=== PATIENT | female | born 1950 | race Caucasian/White ===

== ENCOUNTER 2021-01-29 19:31 | Observation (INO) ==
[2021-01-29 20:21] LABS: Basophils # 0.1 K/mcL (0.0-0.2); Basophils % 1.2 %; Eosinophils # 0.2 K/mcL (0.0-0.6); Eosinophils % 2.1 %; Hematocrit 46.6 % (35.3-44.9); Hemoglobin 15.6 g/dL (11.5-15.4); Immature Granulocytes % 0.4 % (0-4); Lymphocytes # 2.8 K/mcL (0.6-4.6); Lymphocytes % 36.3 %; Mean Corpuscular HGB Conc 33.5 g/dL (31.6-35.5); Mean Corpuscular Hemoglobin 31.8 pg (28.0-33.3); Mean Corpuscular Volume 94.9 fL (83.0-100.0); Mean Platelet Volume 9.1 fL (9.4-12.4); Monocytes # 0.7 K/mcL (0.0-1.3); Monocytes % 8.6 %; Platelet Count 347 K/mcL (140-400); Red Blood Count 4.91 M/mcL (3.82-4.97); Red Cell Distribution Width 13.6 % (11.5-14.5); Segmented Neutrophils % 51.4 %; White Blood Count 7.7 K/mcL (4.3-11.1)
[2021-01-29] MEDS ORDERED: Aspirin 81 MG TAB.CHEW PO ONE (20:38)
[2021-01-29 20:43] LABS: BUN/Creatinine Ratio 26 (6-26); Blood Urea Nitrogen 18 mg/dL (8-23); Carbon Dioxide 27 mEq/L (23-29); Chloride 101 mEq/L (98-107); Glucose 92 mg/dL (70-105); Osmolality,Calculated 290 (280-300); Potassium 3.6 mEq/L (3.5-5.1); Sodium 139 mEq/L (136-145); Troponin I < 0.03 ng/mL (< 0.04); eGFR For African Americans > 60 (> 60); eGFR For Non-African Americans > 60 (> 60)
[2021-01-29] MEDS ORDERED: *HR* Promethazine 25 MG/ML VIAL IM PRN (21:56)
[2021-01-29] MEDS ORDERED: Melatonin 3 MG TABLET PO PRN (21:56)
[2021-01-29] MEDS ORDERED: Naloxone 0.4 MG/ML INJ IVP PRN (21:56)
[2021-01-29] MEDS ORDERED: Ondansetron 4 MG/2 ML VIAL IVP PRN (21:56)
[2021-01-30] MEDS ORDERED: *HR* Heparin 5,000 UNIT/ML VIAL SQ SCH (02:00)
[2021-01-30 02:58] LABS: Basophils # 0.1 K/mcL (0.0-0.2); Basophils % 1.1 %; Eosinophils # 0.2 K/mcL (0.0-0.6); Eosinophils % 2.4 %; Hematocrit 41.9 % (35.3-44.9); Hemoglobin 14.3 g/dL (11.5-15.4); Immature Granulocytes % 0.4 % (0-4); Mean Corpuscular HGB Conc 34.1 g/dL (31.6-35.5); Mean Corpuscular Hemoglobin 32.1 pg (28.0-33.3); Mean Corpuscular Volume 93.9 fL (83.0-100.0); Mean Platelet Volume 9.1 fL (9.4-12.4); Monocytes # 0.7 K/mcL (0.0-1.3); Monocytes % 9.5 %; Neutrophils # 4.5 K/mcL (1.6-8.9); Platelet Count 324 K/mcL (140-400); Red Blood Count 4.46 M/mcL (3.82-4.97); Red Cell Distribution Width 13.7 % (11.5-14.5); Segmented Neutrophils % 59.6 %; White Blood Count 7.5 K/mcL (4.3-11.1)
[2021-01-30 03:14] LABS: INR 1.2; Prothrombin Time 13.4 Seconds (9.4-12.1)
[2021-01-30 03:19] LABS: BUN/Creatinine Ratio 29 (6-26); Blood Urea Nitrogen 19 mg/dL (8-23); Calcium 9.3 mg/dL (8.6-10.3); Carbon Dioxide 25 mEq/L (23-29); Chloride 104 mEq/L (98-107); Chol/HDL Ratio 3.7 (0-4.9); Cholesterol 177 mg/dL (< 200); Glucose 132 mg/dL (70-105); HDL Cholesterol 48 mg/dL (40-59); LDL Cholesterol,Calculated 96 mg/dL (< 100); Osmolality,Calculated 292 (280-300); Potassium 3.3 mEq/L (3.5-5.1); Sodium 139 mEq/L (136-145); Triglycerides 166 mg/dL (< 150); eGFR For African Americans > 60 (> 60); eGFR For Non-African Americans > 60 (> 60)
[2021-01-30] MEDS ORDERED: Regadenoson 0.4 MG/5 ML SYRINGE IVP ONE (06:02)
[2021-01-30] MEDS ORDERED: Aspirin Enteric Coated 81 MG Tablet PO SCH (09:00)
[2021-01-30] MEDS ORDERED: Lisinopril-HCTZ 20-12.5mg TABLET PO SCH (10:30)
[2021-01-30] MEDS ORDERED: Loratadine 10 MG TABLET PO SCH (12:00)
[2021-01-30 12:28] VITALS: BP 133/80
[2021-01-30 13:04] LABS: Estimated Average Glucose 126 mg/dl
[2021-01-30] MEDS ORDERED: Gabapentin 100 MG CAPSULE PO SCH (15:00)
== END 2021-01-30 15:43 | disposition home or self-care (01) ==
LOC: EMEROOARM 19:31 → 3BNU 19:31 → SUATTDRO 21:14 → 3BNU 21:45
PROVIDERS: ADMIT Internal Medicine; ATTEND Internal Medicine